=== PATIENT | female | born 1970 | race Caucasian/White ===

== ENCOUNTER → 2023-07-20 13:44 | Outpatient (REF) | payer OTHER, SELFPAY | LOC: WDC 13:44 | PROVIDERS: ATTENDING PHYSICIAN Family Medicine | DX: Z13.820 Encounter for screening for osteoporosis (principal); Z12.31 Encounter for screening mammogram for malignant neoplasm of breast | CPT/HCPCS: 77063; 77067; 77080 ==

== ENCOUNTER → 2024-02-01 09:27 | Outpatient (REF) | payer OTHER, SELFPAY | LOC: HWRAD 09:27 | PROVIDERS: ATTENDING PHYSICIAN Nurse Practitioner Family | DX: R39.15 Urgency of urination (principal) | CPT/HCPCS: 76770 ==

== ENCOUNTER → 2024-08-26 13:52 | Outpatient (REF) | payer OTHER, SELFPAY | LOC: WDC 13:52 | PROVIDERS: ATTENDING PHYSICIAN Obstetrics & Gynecology; FAMILY PHYSICIAN Nurse Practitioner Family | DX: Z12.31 Encounter for screening mammogram for malignant neoplasm of breast (principal) | CPT/HCPCS: 77063; 77067 ==

== ENCOUNTER → 2025-03-09 16:48 | Outpatient (REF) | payer OTHER, SELFPAY | LOC: RAD 16:48 | PROVIDERS: ATTENDING PHYSICIAN Nurse Practitioner Family | DX: N20.0 Calculus of kidney (principal) | CPT/HCPCS: 74018 ==